=== PATIENT | male | born 1975 | race Caucasian/White ===

== ENCOUNTER 2018-05-02 11:56 | Emergency (ER) | payer BC, SELFPAY ==
[2018-05-02 12:01] VITALS: BP 164/96; PULSE 52; RESP 16; TEMP 36.4; O2SAT 100
--- NOTE | 2018-05-02 12:20 | DI.CT_ITS ---
SYMPTOMS/DIAGNOSIS: RIGHT FLANK PAIN RENAL COLIC CT: Routine examination was performed. No priors for comparison. There is a 6 mm stone in the distal right ureter just proximal to the ureterovesical junction. There is moderate hydronephrosis. No nephrolithiasis is seen. The urinary bladder is intact. The reproductive organs are unremarkable. The bowel shows no evidence of obstruction or inflammation. There is a normal appendix present. There are a few scattered diverticula seen in the sigmoid colon. The unenhanced visualized portion of the liver, spleen, pancreas, gallbladder, bile ducts and adrenal glands are unremarkable. The aorta is of normal caliber. No significant abdominal or pelvic adenopathy, ascites or pneumoperitoneum is present. No acute osseous abnormality is identified. IMPRESSION: A 6 mm distal right ureteral stone causing moderate hydronephrosis. The findings were discussed with Dr. Yang of the Emergency Department on the date of the examination.
--- NOTE | 2018-05-02 12:21 | W.ED.GENAD ---
Discharge Plan Disposition Patient Disposition: HOME Condition: Stable Discharge Details Chief Complaint: Urinary Clinical Impression: Calculus of distal right ureter Primary Care Provider: Christ Lynn ED Provider: Bossman Yang Home Meds and New Rx's Prescriptions: New tamsulosin [Flomax] 0.4 mg capsule 0.4 mg PO DAILY Qty: 13 RF: 0 ondansetron 4 mg tablet,disintegrating 4 mg PO TID PRN (Reason: nausea and vomiting) 5 Days Qty: 30 RF: 0 oxycodone 5 mg tablet 5 mg PO Q4H PRN (Reason: pain) Qty: 10 RF: 0 No Action ibuprofen 200 mg tablet 200 mg PO QID PRNRF: 0 Discharge Instructions Instructions: Kidney Stones (ED) Additional Instructions: You have a kidney stone on the right side you should be contacted with an appointment with a urologist For pain take 600mg ibuprofen and 1000mg tylenol every 6 hours for pain as needed. If you need additional pain relief take 1 oxycodone. Do not drink alcohol or drive if you take this medicine as it can make you sleepy. For nausea take zofran as needed Take the flomax for 13 days or until you pass the stone if you have persistent vomit, severe uncontrolled pain or fevers return to the emergency department Medical Decision Making 42 yo male who denies chronic medical problems comes in with pain in the right flank intermittently along with nausea and right groin pain. Denies vomit, fevers, dysuria. HAs mild rlq pain without guarding and right lower lumbar pain. Denies ivdu, fevers, and has no weakness or sensation deficits on exam, no saddle anesthesia, no findings to suggest cauda equina or sea at this time. Will eval for kidney stone vs appendicitis with ct. Has no testicle pain, swelling and has intact crmeasteric reflex so doubt torsion pt remained stable. labs unremarkable. CT per Dr. aguilar from radiology shows 6mm stone at the uvj. He is stable for outpatient management, will refer to urology and return precautions given Differential Diagnosis kidney stone, pyelo, back strain, lumbar strain, Imaging Data Radiologic Study: Attestation: I personally reviewed and interpreted this imaging study as follows: Imaging: CT Scan Radiologist's impression: 6mm right sided kidney stone at the uvj, with moderate hydro per Dr. aguilar Lab Data Lab results reviewed: Yes I reviewed the patient's lab results. HPI General Mode of arrival: ambulatory. Date/Time Provider Initiated Documentation: 05/02/18 11:57. Limitations to Documentation: no limitations. Information obtained by: patient. History of Present Illness 42 year old M presents to the emergency department with the chief complaint of right flank pain, described as moderate, with intensity rated at 6. Quality is described as stabbing, and is localized to the back and right. Patient started experiencing this day(s) (1) and it has been intermittent. No relieving factors improve symptom(s), No exacerbating factors reported . Patient notes no other symptoms.. Patient did receive the following treatments prior to arrival, none Related Data Home Medications Medication Instructions Recorded Confirmed ibuprofen 200 mg tablet 200 mg PO QID PRN 04/24/18 05/02/18 ondansetron 4 mg PO TID PRN 5 Days #30 tab 05/02/18 oxycodone 5 mg PO Q4H PRN #10 tab 05/02/18 tamsulosin [Flomax] 0.4 mg PO DAILY #13 cap 05/02/18 Previous Rx's Medication Instructions Recorded ondansetron 4 mg PO TID PRN 5 Days #30 tab 05/02/18 oxycodone 5 mg PO Q4H PRN #10 tab 05/02/18 tamsulosin [Flomax] 0.4 mg PO DAILY #13 cap 05/02/18 Allergies Allergy/AdvReac Type Severity Reaction Status Date / Time No Known Allergies Allergy Unverified 05/02/18 12:07 General Stated Complaint: Urinary MAGO: 3 Review of Systems Review of Systems All systems reviewed & are unremarkable except as noted in HPI and below Constitutional Denies chills, Denies fever(s) and Denies weakness ENT Denies change in voice Cardiovascular Denies chest pain and Denies dyspnea Respiratory Denies dyspnea Gastrointestinal Denies vomiting Musculoskeletal Denies joint swelling Neurologic Denies weakness [facility] Medical History Arthritis (Acute) Family History Paternal Grandfather Pacemaker Maternal Grandfather No problems noted. Maternal Grandmother Diabetes Daughter Diabetes Social History current occupational status: employed current occupation: Self-Employed: Receiver Dispatcher Smoking/Tobacco Use Status: Former Tobacco Use Exam Const General: no acute distress Orientation: alert HENMT Head: normal to inspection Ears: external ears normal General nose exam: external nose normal Mouth: moist mucous membranes Eyes General: appearance normal, both eyes and all related structures Neck Neck: normal visual inspection Resp Effort & Inspection: normal respiratory effort and able to speak in complete sentences Cardio Rate: regular rate GI Inspection: normal to inspection Palpation: soft Back/Spine/Pelvis Back: no CVA tenderness Skin General skin exam: no rashes or lesions noted Neuro General: alert and oriented x3 Extrem General: normal to inspection Psych Mental Status: mental status grossly normal Course Vital Signs Temperature 36.4 C L 05/02/18 12:01 Pulse 52 L 05/02/18 12:01 Respiratory Rate 16 05/02/18 12:01 Blood Pressure 164/96 H 05/02/18 12:01 Pulse Oximetry 100 05/02/18 12:01 Temperature 36.4 C L 05/02/18 12:01 Temperature Source Skin 05/02/18 12:01 Pulse 52 L 05/02/18 12:01 Respiratory Rate 16 05/02/18 12:01 Respiratory Effort Non-Labored 05/02/18 12:06 Blood Pressure 164/96 H 05/02/18 12:01 Blood Pressure Position Standing 05/02/18 12:01 Pulse Oximetry 100 05/02/18 12:01 Oxygen Delivery Method Room Air 05/02/18 12:01 Oxygen Flow Rate 0 05/02/18 12:01 Pain Level 7 05/02/18 12:01
--- NOTE | 2018-05-02 12:24 | ED.GENADUL_ITS ---
Discharge Plan Disposition Patient Disposition: HOME Condition: Stable Discharge Details Chief Complaint: Urinary Clinical Impression: Calculus of distal right ureter Primary Care Provider: Christ Lynn ED Provider: Bossman Yang Home Meds and New Rx's Prescriptions: New tamsulosin [Flomax] 0.4 mg capsule 0.4 mg PO DAILY Qty: 13 RF: 0 ondansetron 4 mg tablet,disintegrating 4 mg PO TID PRN (Reason: nausea and vomiting) 5 Days Qty: 30 RF: 0 oxycodone 5 mg tablet 5 mg PO Q4H PRN (Reason: pain) Qty: 10 RF: 0 No Action ibuprofen 200 mg tablet 200 mg PO QID PRNRF: 0 Discharge Instructions Instructions: Kidney Stones (ED) Additional Instructions: You have a kidney stone on the right side you should be contacted with an appointment with a urologist For pain take 600mg ibuprofen and 1000mg tylenol every 6 hours for pain as needed. If you need additional pain relief take 1 oxycodone. Do not drink alcohol or drive if you take this medicine as it can make you sleepy. For nausea take zofran as needed Take the flomax for 13 days or until you pass the stone if you have persistent vomit, severe uncontrolled pain or fevers return to the emergency department Medical Decision Making 42 yo male who denies chronic medical problems comes in with pain in the right flank intermittently along with nausea and right groin pain. Denies vomit, fevers, dysuria. HAs mild rlq pain without guarding and right lower lumbar pain. Denies ivdu, fevers, and has no weakness or sensation deficits on exam, no saddle anesthesia, no findings to suggest cauda equina or sea at this time. Will eval for kidney stone vs appendicitis with ct. Has no testicle pain, swelling and has intact crmeasteric reflex so doubt torsion pt remained stable. labs unremarkable. CT per Dr. aguilar from radiology shows 6mm stone at the uvj. He is stable for outpatient management, will refer to urology and return precautions given Differential Diagnosis kidney stone, pyelo, back strain, lumbar strain, Imaging Data Radiologic Study: Attestation: I personally reviewed and interpreted this imaging study as follows: Imaging: CT Scan Radiologist's impression: 6mm right sided kidney stone at the uvj, with moderate hydro per Dr. aguilar Lab Data Lab results reviewed: Yes I reviewed the patient's lab results. HPI General Mode of arrival: ambulatory . Date/Time Provider Initiated Documentation: 05/02/18 11:57 . Limitations to Documentation: no limitations . Information obtained by: patient . History of Present Illness 42 year old M presents to the emergency department with the chief complaint of right flank pain, described as moderate, with intensity rated at 6. Quality is described as stabbing, and is localized to the back and right. Patient started experiencing this day(s) (1) and it has been intermittent. No relieving factors improve symptom(s), No exacerbating factors reported . Patient notes no other symptoms.. Patient did receive the following treatments prior to arrival, none Related Data Home Medications Medication Instructions Recorded Confirmed ibuprofen 200 mg tablet 200 mg PO QID PRN 04/24/18 05/02/18 ondansetron 4 mg PO TID PRN 5 Days #30 tab 05/02/18 oxycodone 5 mg PO Q4H PRN #10 tab 05/02/18 tamsulosin [Flomax] 0.4 mg PO DAILY #13 cap 05/02/18 Previous Rx's Medication Instructions Recorded ondansetron 4 mg PO TID PRN 5 Days #30 tab 05/02/18 oxycodone 5 mg PO Q4H PRN #10 tab 05/02/18 tamsulosin [Flomax] 0.4 mg PO DAILY #13 cap 05/02/18 Allergies Allergy/AdvReac Type Severity Reaction Status Date / Time No Known Allergies Allergy Unverified 05/02/18 12:07 General Stated Complaint: Urinary MAGO: 3 Review of Systems Review of Systems All systems reviewed & are unremarkable except as noted in HPI and below Constitutional Denies chills, Denies fever(s) and Denies weakness ENT Denies change in voice Cardiovascular Denies chest pain and Denies dyspnea Respiratory Denies dyspnea Gastrointestinal Denies vomiting Musculoskeletal Denies joint swelling Neurologic Denies weakness [facility] Medical History Arthritis (Acute) Family History Paternal Grandfather Pacemaker Maternal Grandfather No problems noted. Maternal Grandmother Diabetes Daughter Diabetes Social History current occupational status: employed current occupation: Self-Employed: Medical Manager Smoking/Tobacco Use Status: Former Tobacco Use Exam Const General: no acute distress Orientation: alert HENMT Head: normal to inspection Ears: external ears normal General nose exam: external nose normal Mouth: moist mucous membranes Eyes General: appearance normal, both eyes and all related structures Neck Neck: normal visual inspection Resp Effort & Inspection: normal respiratory effort and able to speak in complete sentences Cardio Rate: regular rate GI Inspection: normal to inspection Palpation: soft Back/Spine/Pelvis Back: no CVA tenderness Skin General skin exam: no rashes or lesions noted Neuro General: alert and oriented x3 Extrem General: normal to inspection Psych Mental Status: mental status grossly normal Course Vital Signs Temperature 36.4 C L 05/02/18 12:01 Pulse 52 L 05/02/18 12:01 Respiratory Rate 16 05/02/18 12:01 Blood Pressure 164/96 H 05/02/18 12:01 Pulse Oximetry 100 05/02/18 12:01 Temperature 36.4 C L 05/02/18 12:01 Temperature Source Skin 05/02/18 12:01 Pulse 52 L 05/02/18 12:01 Respiratory Rate 16 05/02/18 12:01 Respiratory Effort Non-Labored 05/02/18 12:06 Blood Pressure 164/96 H 05/02/18 12:01 Blood Pressure Position Standing 05/02/18 12:01 Pulse Oximetry 100 05/02/18 12:01 Oxygen Delivery Method Room Air 05/02/18 12:01 Oxygen Flow Rate 0 05/02/18 12:01 Pain Level 7 05/02/18 12:01
[2018-05-02 12:34] LABS: Bilirubin Negative (Negative); Blood Trace-intact (Negative); Clarity Clear; Glucose Negative (Negative); Ketones Trace mg/dL (Negative); Leukocyte Esterase Negative (Negative); Nitrite Negative (Negative); Specific Gravity >= 1.030 (1.005-1.025); Urobilinogen 0.2 EU/dL (Up TO 0.2)
[2018-05-02] MEDS: Ketorolac 15 MG/ML VIAL IVP (12:52)
[2018-05-02] MEDS: Ondansetron 4 MG/2 ML VIAL IVP (12:53)
[2018-05-02] MEDS: Normal Saline 1,000 ML 1000 ML IV (12:53)
[2018-05-02 12:58] LABS: Epithelial Cells Rare HPF (Negative)
[2018-05-02 12:59] LABS: C & S Indicated? Yes; Casts Negative LPF (Negative); Crystals Few Calcium Oxalate HPF (Negative); Mucus Heavy (Negative)
[2018-05-02 13:03] LABS: Abs Immature Grans 0.02 k/cumm (0.0-0.09); Absolute Basophil Count 0.02 k/cumm (0.0-0.2); Absolute Eosinophil Count 0.17 k/cumm (0.0-0.7); Absolute Monocyte Count 0.72 k/cumm (0.11-0.7); Absolute Neutrophil Count 8.34 k/cumm (1.2-6.7); Basophils % 0.2; Eosinophils % 1.6; HCT 44.5 % (40.0-50.0); HGB 15.6 g/dL (13.5-17.5); Immature Grans % 0.2; Lymphocytes % 13.9; Mean Corp. HGB Concentration 35.1 g/dL (32.0-36.0); Mean Corpuscular Hemoglobin 29.3 pg (27.0-33.0); Mean Corpuscular Volume 83.6 fL (80-95); Monocytes % 6.7; Neutrophils % 77.4; Platelet Count 249 x1000/uL (130-400); RBC 5.32 m/cumm (4.50-6.00); RBC Distribution Width 12.7 % (11.8-14.1); White Blood Cell Count 10.77 k/cumm (4.4-10.8)
[2018-05-02 13:17] LABS: ALT 40 U/L (12-78); AST 29 U/L (15-37); Albumin 4.3 g/dL (3.4-5.0); Alkaline Phosphatase 137 U/L (46-116); Anion Gap 11.2 mmol/L (3-11); BUN 27 mg/dL (7-18); Bilirubin, Direct 0.25 mg/dL (0.00-0.20); Bilirubin, Total 0.9 mg/dL (0.2-1.0); CO2 27.8 mmol/L (21.0-32.0); CREATININE 1.23 mg/dL (0.70-1.30); Calcium 9.5 mg/dL (8.5-10.1); Chloride 100 mmol/L (98-107); Glucose 151 mg/dL (70-100); Lipase 85 U/L (73-393); Sodium 139 mmol/L (136-145); Total Protein 8.6 g/dL (6.4-8.2)
[2018-05-02] MEDS: Tamsulosin 0.4 MG CAPCR PO (13:28)
[2018-05-02 14:05] VITALS: BP 165/91; PULSE 50; RESP 16; TEMP 36.6; O2SAT 100
--- NOTE | 2018-05-03 09:29 | PDOC.ERCMPRO ---
Care Management Progress Note 05/03-Dr. Yang requested assistance with a urology f/u within two weeks for kidney stone. Referral faxed to specialty clinics this am.
== END 2018-05-02 14:06 | disposition home or self-care (01) ==
PROVIDERS: Emergency Provider Emergency Medicine; PCP Family Medicine
DX: N13.1 Hydronephrosis with ureteral stricture, not elsewhere classified (principal)
CPT/HCPCS: 80053; 80076; 83690; 96361; 96374; 96375; 99284; 74176; 81003; 81015; 85025; 87086; J1885; J2405

== ENCOUNTER 2018-05-11 07:20 | Day surgery (SDC) | payer BC, SELFPAY ==
[2018-05-11] VITALS (7 sets, daily range): BP systolic 114–146; BP diastolic 72–105; PULSE 59–78; RESP 11–17; TEMP 35.6–36.5; O2SAT 95–98
[2018-05-11] MEDS: Lactated Ringers 1,000 ML 80 ML IV (07:57)
[2018-05-11] MEDS: Lidocaine 2% Jelly 6 ML SYR (09:12)
[2018-05-11] MEDS: Omnipaque 300 MG/ML 50 ML BTL (09:12)
--- NOTE | 2018-05-11 10:16 | W.PM.DSUDISC ---
Discharge Plan Disposition Patient Disposition: HOME Condition: Stable Discharge Details Reason For Visit: (R) URETERAL STONE ? BLADDER STONE Attending Provider: Anatoliy Lujan Primary Care Provider: Christ Lynn Home Meds and New Rx's Prescriptions: New oxybutynin chloride 5 mg tablet 5 mg PO TID PRN (Reason: spasms) Qty: 15 RF: 0 Discontinued tamsulosin [Flomax] 0.4 mg capsule 0.4 mg PO DAILY Qty: 13 RF: 0 oxycodone 5 mg tablet 5 mg PO Q4H PRN (Reason: pain) Qty: 10 RF: 0 No Action oxycodone 5 mg tablet 5 mg PO Q4H MDD 6 PRN (Reason: pain) Qty: 20 RF: 0 tamsulosin [Flomax] 0.4 mg capsule 0.4 mg PO DAILY Qty: 5 RF: 0 ibuprofen 200 mg tablet 200 mg PO QID PRNRF: 0 Discharge Instructions Additional Instructions: No need to strain urine F/U early next week for stent removal - tell my office pt has string on end of his stent F/U appt 4 to 6 weeks with renal US Activity:: Activity as Tolerated Diet:: As Tolerated Discharge Orders Discharge Orders: Discharge Order (Routine); Ordered 05/11/18 Ordered By: Anatoliy Lujan DS: Diagnosis Discharge Diagnosis (1) Ureteral stone: Status: Acute
--- NOTE | 2018-05-11 12:37 | ROE_ITS ---
REPORT OF OPERATIVE PROCEDURE DATE OF SURGERY May 11, 2018 PREOPERATIVE DIAGNOSIS Right ureteral stone. POSTOPERATIVE DIAGNOSIS Right ureteral stone. PROCEDURE Cystoscopy, right retrograde pyelogram, right ureteroscopy, Holmium laser right ureteral stone, extra ction of multiple stone fragments, insert right ureteral stent. SURGEON Anatoliy Lujan M.D. ANESTHESIA General. COMPLICATIONS None. ESTIMATED BLOOD LOSS Minimal. HISTORY This is a 42-year-old gentleman who presented to the Emergency Room recently with right-sided pain. Skyler aguilar was identified as having 6 to 7-mm right distal ureteral stone. He no longer has flank pain, but continues to have frequency and urgency. He has not passed a stone a s far as he is aware. He presents for stone manipulation. OPERATIVE REPORT The patient was brought to the Operating Room on 05/11/2018. After successful induction of General a nesthesia, he was placed in the dorsal lithotomy position. His genitalia was prepped and draped. A #22-Slovak rigid cystoscopy was passed through the urethra into the bladder. The bladder was inspec wanda using a 30-degree lens. The pendulous, bulbous and membranous urethras all appeared normal. The prostatic urethra showed some lateral lobe enlargement. The bladder neck was then entered. The bladder mucosa was inspected. A #6-Slovak Access catheter was passed through the cystoscope and maneuvered into the right ureteral orifice. A retrograde film was obtained, this demonstrated a filling defect in the distal ureter. The ureter above this filling defect was dilated. We had some difficulty passing a guidewire above the level of the filling defect, but ultimately, we were able to advance the wire. We then removed the cystoscope and passed a semirigid ureteroscope thr ough the urethra into the bladder. The scope was advanced into the distal urethra and the stone was s een within 1 to 2 centimeters of the urethral meatus. The stone appeared fairly impacted in this region. We then used a 365 Holmium laser fiber to fragment the stone. We used dusting settings of energy of 200 and a rate of 8. The stone fragmented quite nicely. We left one of the fragments large enough that we could grasp in a [place] Stone basket and remove it for chemical analysis. A few smaller stone fragments were evacuate d with a Tomey syringe. At the completion of the procedure, we did not visualize any additional stone fragment in the ureter. A 4.8 #Slovak variable lens stent was advanced over the indwelling wire. The stent was advanced until the proximal end was in the renal pelvis and the distal end was seen within the bladder. The safety string was left in place and brought through the urethra. The string was anchored to the dorsum of th e patient's penis with surgical tape. The patient tolerated the procedure well with no complications.
[2018-05-17 11:14] LABS: Source: Ureter
== END 2018-05-11 11:53 | disposition home or self-care (01) ==
PROVIDERS: PCP Family Medicine; Visit Provider Urology
PROC: (CPT 52356; principal; 2018-05-11 08:30)
DX: N20.1 Calculus of ureter (principal)
CPT/HCPCS: 52356; 76000; 82365; J0690; J1885; J2405; J3010; Q9967

== ENCOUNTER 2018-06-12 01:36 | Outpatient (CLI) | payer BC, SELFPAY ==
--- NOTE | 2018-06-12 07:21 | DI.US_ITS ---
SYMPTOM/DIAGNOSIS: S/P URETEROSCOPY, ? HYDRONEPHROSIS, CALCULUS OF URETER, N20.1 RENAL ULTRASOUND: Comparison is made with CT of the abdomen and pelvis dated 05/02/18. The right kidney measures 10.8 cm in length and shows normal parenchymal thickness. No hydronephrosis or calcifications are seen. The left kidney measures 10.6 cm. in length. There is no left hydronephrosis. No calculi are identified. The prevoid bladder volume measures 178 cc's. Bilateral ureteral jets were noted although the right ureteral jet was weaker than left. The postvoid residual is 14 cc's. The prostate volume is 17 cc's. IMPRESSION: No evidence of hydronephrosis.
== END 2018-06-12 01:56 ==
PROVIDERS: PCP Family Medicine; Visit Provider Nurse Practitioner Gerontology
DX: N20.1 Calculus of ureter (principal); Z98.890 Other specified postprocedural states
CPT/HCPCS: 76770

== ENCOUNTER 2019-05-01 07:32 | Outpatient (CLI) | payer BC, SELFPAY ==
[2019-05-01 09:04] LABS: ALT 64 U/L (16-63); AST 41 U/L (15-37); Albumin 3.9 g/dL (3.4-5.0); Alkaline Phosphatase 121 U/L (46-116); Anion Gap 7.5 mmol/L (3-11); BUN 14 mg/dL (7-18); Bilirubin, Total 0.5 mg/dL (0.2-1.0); CO2 29.5 mmol/L (21.0-32.0); CREATININE 0.98 mg/dL (0.70-1.30); Calcium 8.6 mg/dL (8.5-10.1); Calculated LDL 83 mg/dL; Chloride 105 mmol/L (98-107); Cholesterol 179 mg/dL (<200); Glucose 94 mg/dL (74-106); HDL Cholesterol 51 mg/dL (40-60); Sodium 142 mmol/L (136-145); Total Protein 7.7 g/dL (6.4-8.2); Triglyceride 226 mg/dL (<150)
== END 2019-05-01 07:52 ==
PROVIDERS: PCP Family Medicine; Visit Provider Family Medicine
DX: Z13.220 Encounter for screening for lipoid disorders (principal)
CPT/HCPCS: 36415; 80053; 80061

== ENCOUNTER 2019-11-05 09:04 | Outpatient (REF) | payer BC, SELFPAY ==
[2019-11-05 18:58] LABS: ALT 54 U/L (16-63); AST 41 U/L (15-37); Albumin 4.1 g/dL (3.4-5.0); Alkaline Phosphatase 136 U/L (46-116); Bilirubin, Direct 0.16 mg/dL (0.00-0.20); Bilirubin, Total 0.7 mg/dL (0.2-1.0); Total Protein 8.1 g/dL (6.4-8.2)
== END 2019-11-05 09:24 ==
LOC: LBO 09:04
PROVIDERS: PCP Family Medicine; Visit Provider Family Medicine
DX: R74.8 Abnormal levels of other serum enzymes (principal)
CPT/HCPCS: 80076

== ENCOUNTER 2020-12-10 02:50 | Outpatient (CLI) | payer BC, SELFPAY ==
[2020-12-10 09:47] LABS: Lipase 91 U/L (73-393)
[2020-12-10 09:51] LABS: ALT 51 U/L (16-63); AST 29 U/L (15-37); Albumin 3.9 g/dL (3.4-5.0); Alkaline Phosphatase 113 U/L (46-116); Bilirubin, Direct 0.2 mg/dL (0.0-0.2); Bilirubin, Total 0.7 mg/dL (0.2-1.0); Total Protein 7.6 g/dL (6.4-8.2)
[2020-12-11 10:48] LABS: HIV-1/2 Ag & Ab Screen Negative (Negative)
[2020-12-11 11:03] LABS: Hepatitis C Ab w Rflx HCV PCR Negative (Negative)
== END 2020-12-10 02:51 | disposition home or self-care (01) ==
LOC: LBO 02:50
PROVIDERS: PCP Family Medicine; Visit Provider Family Medicine
DX: R94.5 Abnormal results of liver function studies (principal); Z11.3 Encounter for screening for infections with a predominantly sexual mode of transmission; Z11.4 Encounter for screening for human immunodeficiency virus [HIV]; Z11.59 Encounter for screening for other viral diseases
CPT/HCPCS: 36415; 80076; 83690; 86803; 87389